=== PATIENT | female | born 1985 | race Caucasian/White ===

== ENCOUNTER 2016-12-17 23:14 | Inpatient (IN) | payer MEDICAID ==
[~2016-12-17] VITALS: Ht 165.1 cm; Wt 64.9 kg
[2016-12-17 23:36] VITALS: BP 121/57
[2016-12-18 00:27] LABS: ANION GAP 6.4 (8-16); CARBON DIOXIDE 31.3 mmol/L (21-32); CREATININE 0.7 mg/dL (0.6-1.3); HEMATOCRIT 36.3 % (36-48); MEAN CORPUSCULAR HEMOGLOBIN 32 pg (27-31); MEAN CORPUSCULAR HGB CONC 33 g/dL (33-37); MEAN CORPUSCULAR VOLUME 98 fL (80-94); PLATELET COUNT (AUTO) 188 K/uL (140-450); POTASSIUM 3.7 mmol/L (3.5-5.1); RED BLOOD CELL COUNT(AUTO) 3.72 MIL/uL (4.20-5.40); RED CELL DISTRIBUTION WIDTH 11.9 % (11.6-13.7); WHITE BLOOD COUNT (AUTO) 9.4 K/uL (4.8-10.8)
[2016-12-18 00:33] LABS: ALBUMIN 3.6 g/dL (3.4-5.0); TOTAL BILIRUBIN 0.2 mg/dL (0.0-1.0)
[2016-12-18 00:34] LABS: APPEARANCE,URINE CLEAR (CLEAR); BILIRUBIN,URINE NEGATIVE (NEGATIVE); BLOOD, URINE NEGATIVE (NEGATIVE); COLOR,URINE YELLOW (YELLOW); LEUKOCYTE ESTERASE ,URINE NEGATIVE (NEGATIVE); NITRITE, URINE NEGATIVE (NEGATIVE); UGLUCOSE NEGATIVE (NEGATIVE)
[2016-12-18 00:36] LABS: EOSINOPHILS % (MANUAL) 4 % (0-4); LYMPHOCYTES % (MANUAL) 34 % (20-46); MONOCYTES % (MANUAL) 6 % (5-12)
[2016-12-18 00:47] LABS: RBC,URINE 0-5 (RARE) /HPF (0-5)
[2016-12-18] MEDS ORDERED: oxyCODONE/APAP 5/325 MG 1 TAB TAB PO ONE (01:50)
[2016-12-18] MEDS ORDERED: ACETAMINOPHEN 325 MG TAB PO PRN (03:50)
[2016-12-18 04:25] LABS: PROTHROMBIN TIME 10.4 secs (10.8-13.4)
[2016-12-18 04:30] VITALS: BP 108/73
[2016-12-18] MEDS: NACL 0.9% 1,000 ML IV SCH ×2 (04:30→05:49)
[2016-12-18 04:37] LABS: CHOL/HDL RATIO 2.6 (1-4.5); FREE T4 (FREE THYROXINE) 0.9 ng/dL (0.76-1.46); MAGNESIUM 1.8 mg/dL (1.8-2.4); THYROID STIMULATING HORMONE 2.51 uIU/mL (0.34-3.74)
[2016-12-18 05:27] LABS: BARBITURATE, URINE NEG. ng/ml (NEG <=200); BENZODIAZEPINE, URINE NEG. ng/mL (NEG <=200); CANNABINOID, URINE NEG. ng/mL (NEG <=50); COCAINE, URINE NEG. ng/mL (NEG <=300); OPIATE, URINE NEG. ng/mL (NEG <=2000); PHENCYCLIDINE SCREEN,URINE NEG. ng/mL (NEG <=25)
[2016-12-18] MEDS ORDERED: INFLUENZA VIRUS VACCINE QUAD 0.5 ML SYR IMVAC SCH (05:45)
[2016-12-18] MEDS: ONDANSETRON 4 MG/2 ML VIAL IVP PRN ×2 (05:54→16:48)
[2016-12-18 08:00] VITALS: BP 96/60
[2016-12-18] MEDS ORDERED: DOCUSATE SODIUM 100 MG GELCAP PO SCH (09:00)
[2016-12-18] MEDS: HYDROcodone/APAP 7.5/325 MG 1 TAB PO PRN ×2 (10:03→13:56)
[2016-12-18 12:00] VITALS: BP 106/46
[2016-12-18 16:00] VITALS: BP 93/56
[2016-12-18] MEDS ORDERED: ACET-1182 PO (17:57)
== END 2016-12-18 19:00 | disposition home or self-care (01) | DRG 563 ==
LOC: MED 23:14 → MTU 12-18 03:57
PROVIDERS: ADMIT Family Medicine Sports Medicine; ATTEND Family Medicine Sports Medicine
DX: O20.0 Threatened abortion (principal); O23.40 Unspecified infection of urinary tract in pregnancy, unspecified trimester; Z90.49 Acquired absence of other specified parts of digestive tract; Z90.721 Acquired absence of ovaries, unilateral; Z90.79 Acquired absence of other genital organ(s)
CPT/HCPCS: 36415; 76801; 80053; 80305; 81001; 81025; 82150; 83036; 83690; 83735; 83880; 84100; 84439; 84443; 84484; 84702; 85025; 85610; 85730; 86886; 86900; 86901; 87081; 87086; 90658; 93005; 99285; J2405; J7030; Q0092

== ENCOUNTER 2017-09-05 17:50 | Emergency (ER) | payer MEDICAID ==
[~2017-09-05] VITALS: Ht 162.6 cm; Wt 76.8 kg
[~2017-09-05 17:50] MED LIST: ACET-1182 PO
[2017-09-05 17:58] VITALS: BP 142/80
--- NOTE | 2017-09-05 18:02 | NUR ---
PT WHEEL CHAIR ASSISTED TO BED 6, REPORT GIVEN TO TAMIKO PATE
--- NOTE | 2017-09-05 18:03 | NUR ---
PATIENT TO BED 6
--- NOTE | 2017-09-05 18:10 | NUR ---
PATIENT PRESENTS TO ED WITH COMPLAINTS OF LEFT FOOT PAIN X 2 WEEKS. PATIENT STATES PAIN IS WORSENED BY WALKING AND WIEGHT BEARING. PATIENT DENIES TRAUMA. NO SWELLING NOTED, PATIENT POINTS TO ARCH/HEEL SITE OF PAIN. SKIN IS PINK/WARM/DRY; AAOX4 WITH EVEN AND STEADY GAIT; LUNGS CLEAR BL; HR EVEN AND REGULAR; PT DENIES ANY FEVER, CP, SOB, OR COUGH AT THIS TIME; PATIENT STATES PAIN OF 7/10 AT THIS TIME; VSS; PATIENT POSITIONED FOR COMFORT; HOB ELEVATED; BEDRAILS UP X1; BED DOWN. ER MD MADE AWARE OF PT STATUS.
[2017-09-05] MEDS ORDERED: KETOROLAC 60 MG/2 ML VIAL IM ONE (18:25)
[2017-09-05 19:20] VITALS: BP 113/74
== END 2017-09-05 19:16 | disposition home or self-care (01) ==
LOC: MED 17:50
DX: M72.2 Plantar fascial fibromatosis (principal)
CPT/HCPCS: 73630; 96372; 99284; J1885

== ENCOUNTER 2019-02-21 20:16 | Emergency (ER) | payer SELFPAY ==
[~2019-02-21] VITALS: Ht 165.1 cm; Wt 82.6 kg
[2019-02-21 20:31] VITALS: BP 109/65
--- NOTE | 2019-02-21 20:34 | NUR ---
TO LOBBY A/W BED AMBULATORY
--- NOTE | 2019-02-21 20:48 | NUR ---
PT AMBULATED TO BED #5
--- NOTE | 2019-02-21 20:50 | NUR ---
34 Y/O F PRESENTS TO ED WITH C/O ALTAMIRANO X1 DAY. PT REPORTS HAVING INTERMINTENT ALTAMIRANO SINCE HAVING A BRAIN ANUERYSM IN 2005. +N/V, VOMITTING X2 TODAY. PAIN LOCATED AT RT OCCIPITAL HEAD, RADIATING TO NECK, PRESSURE LIKE PAIN. AT ONSET OF ALTAMIRANO, PT STATED BLURRED VISION BUT NO CURRENT CHANGES IN VISION. PERRL PRESENT. BEDRAIL X1 UP. DAUGHTER AT BEDSIDE. WILL CONTINUE TO MONITOR.
--- NOTE | 2019-02-21 21:14 | NUR ---
PT AMBULATED WITH STEADY GAIT TO THE RESTROOM
--- NOTE | 2019-02-21 21:55 | NUR ---
Dr. Conde examining patient.
[2019-02-21] MEDS ORDERED: NACL 0.9% 1,000 ML IV ONE (21:58)
[2019-02-21] MEDS ORDERED: METOCLOPRAMIDE 10 MG/2 ML INJ VIAL IVP ONE (22:00)
[2019-02-21] MEDS ORDERED: diphenhydrAMINE 50 MG/ML VIAL IVP ONE (22:00)
--- NOTE | 2019-02-21 22:07 | NUR ---
PT TAKEN TO CT VIA WHEELCHAIR
--- NOTE | 2019-02-21 22:07 | NUR ---
Addie orozco in [facility] - 02/21/19 at 2207 by IAN PT TAKEN TO CT
[2019-02-21 22:21] LABS: APPEARANCE,URINE CLEAR (CLEAR); BILIRUBIN,URINE NEGATIVE (NEGATIVE); BLOOD, URINE 3+ (NEGATIVE); COLOR,URINE YELLOW (YELLOW); LEUKOCYTE ESTERASE ,URINE TRACE (NEGATIVE); NITRITE, URINE NEGATIVE (NEGATIVE); UGLUCOSE NEGATIVE (NEGATIVE)
--- NOTE | 2019-02-21 23:15 | NUR ---
PT REPORTS DECREASE IN PAIN.
--- NOTE | 2019-02-21 23:17 | NUR ---
PT AMBULATED TO RESTROOM.
--- NOTE | 2019-02-22 00:40 | NUR ---
PT SEEN WITH EYES CLOSED. VISIBLE CHEST RISE AND FALL NOTED. PT AROUSABLE TO VOICE AND LIGHT TOUCH. BEDRAIL UP X1. WILL CONTINUE TO MONITOR.
[2019-02-22 01:23] VITALS: BP 105/62
--- NOTE | 2019-02-22 01:36 | NUR ---
Patient discharged with v/s stable. Written and verbal after care instructions given and explained. Patient alert, oriented and verbalized understanding of instructions. Ambulatory with steady gait. All questions addressed prior to discharge. ID band removed. Patient advised to follow up with PMD. Rx of norco, motrin, cipro, and zofran given. Patient educated on indication of medication including possible reaction and side effects. Opportunity to ask questions provided and answered.
== END 2019-02-22 01:36 | disposition home or self-care (01) ==
LOC: MED 20:16
DX: R51 Headache (principal); N39.0 Urinary tract infection, site not specified; R11.2 Nausea with vomiting, unspecified; Z98.890 Other specified postprocedural states; Z79.899 Other long term (current) drug therapy
CPT/HCPCS: 70450; 81001; 81025; 87086; 96361; 96374; 96375; 99284; J1200; J2765; J7030